=== PATIENT | male | born 1975 | race Caucasian/White ===

== ENCOUNTER 2018-03-30 07:27 | Emergency (ER) | payer OTHER ==
--- NOTE | 2018-03-30 07:42 | ED Physician Documentation ---
PD HPI URI - Stated complaint Stated Complaint: BODY ACHES/WHITFIELD - History obtained from History obtained from: Patient - History of Present Illness Timing - onset: How many weeks ago (1) Timing duration: Weeks (1) Timing details: Gradual onset, Still present Associated symptoms: Fever, Chills, Nasal congestion, Sinus pain, Productive cough, Dyspnea Contributing factors: No: Sick contact, Travel, Immunocompromised, COPD / asthma Improves by: No: Medication (tried excedrin and ibuprofen without improvement.) Similar symptoms before: Diagnosis (pneumonia years ago) Recently seen: Not recently seen Review of Systems Constitutional: reports: Fever, Chills, Myalgias, Fatigue Nose: reports: Congestion, Sinus pressure / pain Cardiac: denies: Chest pain / pressure Respiratory: reports: Dyspnea, Cough, Wheezing GI: reports: Nausea (He says he has not had much to eat or drink in the last few days due to nausea and general malaise.), Diarrhea. denies: Vomiting : reports: Dysuria (urine burning the past couple days due to dehydration). denies: Frequency Skin: denies: Rash, Lesions PD PAST MEDICAL HISTORY - Past Medical History Cardiovascular: None Respiratory: None Neuro: None Endocrine/Autoimmune: None GI: None : None Psych: Depression, Anxiety, Post traumatic stress disorder Musculoskeletal: None - Present Medications Home Medications: Ambulatory Orders Medication Instructions Recorded Confirmed Albuterol Sulf [Ventolin Hfa 1 - 2 puffs INH Q4HR PRN #1 inhaler 03/30/18 Inhaler] Benzonatate [Tessalon] 100 mg PO TID PRN #25 capsule 03/30/18 Ciprofloxacin HCl [Cipro] 500 mg PO BID #10 tablet 03/30/18 Citalopram Hydrobromide [Celexa] 40 mg DAILY 03/30/18 03/30/18 Dexamethasone [Decadron] 4 mg PO DAILY #5 tablet 03/30/18 Ondansetron Odt [Zofran] 4 mg TL Q6H PRN #15 tablet 03/30/18 guaiFENesin/CODEINE [Robitussin AC] 10 ml PO Q6H PRN #240 ml 03/30/18 - Allergies Allergies/Adverse Reactions: Allergies Allergy/AdvReac Type Severity Reaction Status Date / Time anthrax vaccine Allergy Unknown Verified 03/30/18 07:52 flu shot Allergy Unknown Uncoded 03/30/18 07:52 - Living Situation Living Situation: reports: With spouse/s.o. Living Arrangement: reports: At home - Social History Does the pt smoke?: Yes Smoking Status: Current every day smoker Does the pt have substance abuse?: No PD ED PE NORMAL - Vitals Vital signs reviewed: Yes - General General: Alert and oriented X 3, No acute distress, Well developed/nourished - HEENT HEENT: Ears normal, Pharynx benign - Neck Neck: Supple, no meningeal sign, No adenopathy - Cardiac Cardiac: RRR, No murmur - Respiratory Respiratory: No: Clear bilaterally (some coarse sounds right side and then wheezing with cough diffusely) - Abdomen Abdomen: Normal bowel sounds, Soft, Non distended, No organomegaly, Other ( general tenderness without focality and no rebound nor percussion tenderness. ) - Derm Derm: Normal color, No rash - Neuro Neuro: Alert and oriented X 3, No motor deficit, Normal speech Results - Vitals Vitals: Vital Signs - 24 hr 03/30/18 03/30/18 03/30/18 07:35 09:09 09:25 Temperature 38.3 C H 38.1 C H Heart Rate 82 70 78 Respiratory 16 16 17 Rate Blood Pressure 117/81 H 100/62 O2 Saturation 95 03/30/18 10:40 Temperature Heart Rate 73 Respiratory 16 Rate Blood Pressure 103/67 O2 Saturation Oxygen O2 Source Room air - Labs Labs: Laboratory Tests 03/30/18 03/30/18 08:16 08:16 WBC 14.8 H RBC 4.76 Hgb 14.1 Hct 42.0 MCV 88.1 MCH 29.6 MCHC 33.6 RDW 13.6 Plt Count 188 MPV 9.4 Neut # (Auto) 12.4 H Lymph # (Auto) 0.7 L [place] # (Auto) 1.5 H Eos # (Auto) 0.1 Baso # (Auto) 0.1 Absolute Nucleated RBC 0.00 Nucleated RBC % 0.0 Sodium 136 Potassium 3.8 Chloride 104 Carbon Dioxide 23 Anion Gap 9.0 BUN 21 H Creatinine 1.0 Estimated GFR (MDRD) 81 L Glucose 109 H Calcium 8.8 Total Bilirubin 0.7 AST 18 ALT 15 Alkaline Phosphatase 57 Total Protein 7.7 Albumin 3.6 Globulin 4.1 Albumin/Globulin Ratio 0.9 L Lipase 25 - Rads (name of study) chest xray Radiology: Prelim report reviewed, EMP read contemporaneously (no focal infiltrates. ) PD MEDICAL DECISION MAKING - ED course Complexity details: reviewed results, re-evaluated patient (breathing much improved with neb treatment. ), considered differential (Sounds flu-like or URI with nausea and diarrhea though. He is alert and conversant. Normal vitals. Does not seem septic. Consider bronchitis/pneumonia though with history of smoking. Also has wheezing, so will benefit from MDI and steroids likely. Given smoking history and likely some mild COPD (on xray and with wheezing), he may have bacterial component, secondarily if not primarily, so consider abx. He has had Cipro in the past for similar bronchitis/pneumonia and says it worked best, so his preference if going with abx. He says he feels dehydrated and thinks he would benefit from IV fluids, so can do that. ), d/w patient - Sepsis Event Vital Signs: Vital Signs - 24 hr 03/30/18 03/30/18 03/30/18 07:35 09:09 09:25 Temperature 38.3 C H 38.1 C H Heart Rate 82 70 78 Respiratory 16 16 17 Rate Blood Pressure 117/81 H 100/62 O2 Saturation 95 03/30/18 10:40 Temperature Heart Rate 73 Respiratory 16 Rate Blood Pressure 103/67 O2 Saturation Oxygen O2 Source Room air Departure - Departure Disposition: 01 Home, Self Care Clinical Impression: Dehydration Upper respiratory infection Qualifiers: URI type: unspecified URI Qualified Code(s): J06.9 - Acute upper respiratory infection, unspecified Diarrhea Qualifiers: Diarrhea type: unspecified type Qualified Code(s): R19.7 - Diarrhea, unspecified Condition: Stable Record reviewed to determine appropriate education?: Yes Instructions: ED Upper Resp Infec Abx Tx Follow-Up: SHAR FERGUSON [Primary Care Provider] - Prescriptions: Albuterol Sulf [Ventolin Hfa Inhaler] 1 - 2 puffs INH Q4HR PRN #1 inhaler PRN Reason: Shortness Of Air/Wheezing Benzonatate [Tessalon] 100 mg PO TID PRN #25 capsule PRN Reason: Cough Ciprofloxacin HCl [Cipro] 500 mg PO BID #10 tablet Dexamethasone [Decadron] 4 mg PO DAILY #5 tablet guaiFENesin/CODEINE [Robitussin AC] 10 ml PO Q6H PRN #240 ml PRN Reason: Cough Ondansetron Odt [Zofran] 4 mg TL Q6H PRN #15 tablet PRN Reason: Nausea / Vomiting Comments: Drink lots of fluids. Zofran if needed for nausea. Use albuterol inhaler 2 puffs 4 times a day for the next 7-10 days. Extra times if needed for wheezing and cough. Decadron for the inflammation of the bronchioles and airways to reduce coughing and improve breathing. Tessalon if needed for cough. Add cough medicine if needed. Cipro antibiotic twice daily for 5 days for potential bacterial component to this. Recheck if not improving over the next several days to week. Discharge Date/Time: 03/30/18 10:40
[2018-03-30] MEDS ORDERED: SODIUM CHLORIDE 0.9% 1,000 ML IV ONE ×2 (07:52→09:39)
[2018-03-30] MEDS ORDERED: ONDANSETRON 4 MG/2 ML VIAL IVP STA (07:52)
[2018-03-30] MEDS ORDERED: ACETAMINOPHEN 325 MG TABLET PO STA (07:53)
[2018-03-30] MEDS ORDERED: DEXAMETHASONE 10 MG/ML VIAL IVP STA (07:53)
[2018-03-30] MEDS ORDERED: KETOROLAC 60 MG/2 ML VIAL IVP STA (07:53)
--- NOTE | 2018-03-30 08:26 | XRAY Report ---
EXAM: CHEST RADIOGRAPHY EXAM DATE: 03/30/2018 08:06 AM. CLINICAL HISTORY: Left-sided chest pain. COMPARISON: None. TECHNIQUE: 2 views. FINDINGS: Lungs/Pleura: Lungs are hyperexpanded with flattening of the diaphragm. No focal pulmonary opacity. N o pneumothorax or pleural effusion. Mediastinum: Heart and mediastinal contours are unremarkable. Other: No acute osseous abnormality. IMPRESSION: Hyperexpansion with flattening of the diaphragm, raising the possibility of COPD/emphysema. No focal pulmonary consolidation or other acute cardiopulmonary abnormality. [facility] Referring Provider Line: [phone] SITE ID: [id number]
[2018-03-30 08:27] LABS: BASOPHILS # (AUTO) 0.1 10^3/uL (0.0-0.1); BASOPHILS % (AUTO) 0.5 %; EOSINOPHILS # (AUTO) 0.1 10^3/uL (0.0-0.7); EOSINOPHILS % (AUTO) 0.5 %; HGB - HEMOGLOBIN 14.1 g/dL (14.0-18.0); LYMPHOCYTES # (AUTO) 0.7 10^3/uL (1.5-3.5); MEAN CORPUSCULAR HEMOGLOBIN 29.6 pg (27.0-31.0); MEAN CORPUSCULAR HGB CONC 33.6 g/dL (32.0-36.0); MEAN CORPUSCULAR VOLUME 88.1 fL (80.0-94.0); MEAN PLATELET VOLUME 9.4 fL (7.4-11.4); MONOCYTES # (AUTO) 1.5 10^3/uL (0.0-1.0); MONOCYTES % (AUTO) 9.9 %; NEUTROPHILS # (AUTO) 12.4 10^3/uL (1.5-6.6); NEUTROPHILS % (AUTO) 84.1 %; PLT - PLATELET COUNT 188 10^3/uL (130-450); RED BLOOD COUNT 4.76 10^6/uL (4.70-6.10); RED CELL DISTRIBUTION WIDTH 13.6 % (12.0-15.0); WHITE BLOOD COUNT 14.8 x10^3/uL (4.8-10.8)
[2018-03-30 08:40] LABS: ALBUMIN 3.6 g/dL (3.2-5.5); ALBUMIN/GLOBULIN RATIO 0.9 (1.0-2.2); BILIRUBIN,TOTAL 0.7 mg/dL (0.2-1.0); CALCIUM 8.8 mg/dL (8.5-10.3); TOTAL PROTEIN 7.7 g/dL (6.7-8.2)
[2018-03-30] MEDS ORDERED: ALBUTEROL NEB 2.5 MG/3 ML INH STA (09:07)
[2018-03-30 10:41] VITALS: BP 103/67
== END 2018-03-30 10:40 | disposition home or self-care (01) ==
LOC: ED 07:27
DX: E86.0 Dehydration (principal); J06.9 Acute upper respiratory infection, unspecified; R19.7 Diarrhea, unspecified; F17.200 Nicotine dependence, unspecified, uncomplicated
CPT/HCPCS: 36415; 71046; 80053; 83690; 85025; 94640; 96361; 96374; 96375; 99283; 99284; A9270